=== PATIENT | female | born 1995 | race Two or more races ===

== ENCOUNTER 2017-10-27 14:51 | Inpatient (IN) | payer BC ==
[~2017-10-27] VITALS: Ht 157.5 cm; Wt 61.2 kg
--- NOTE | 2017-10-27 09:00 | NUR ---
RN NOTES PT IS RESTING IN BED COMFORTABLY. PT ON RA, RESPIRATIONS ARE EVEN AND UNLABORED. IV ON LAC INTACT AND RUNNING NS @ 75ML/HR. SAFETY MEASURES ARE IN PLACE, CALL LIGHT IS IN REACH. WILL ENDORSE TO MARKETING AND OUTREACH COORDINATOR RN FOR CONTINUITY OF CARE.
--- NOTE | 2017-10-27 15:10 | NUR ---
C/O RLQ ABD PAIN X THURSDAY. PT WAS DIAGNOSED OF APPENDECITIS AT [facility]. LAST NIGHT. 'I SIGNED AMA,THEY WON'T DO SURGERY CAUSE OF INSURANCE". NAD NOTED, VSS, RESP EVEN AND UNLABORED. PT PUT ON HOSPITAL GOWN AND MONITOR, WAITING FOR MD DODSON.
[2017-10-27 16:16] LABS: BASOPHILS % (AUTO) 0.3 % (0.0-2.0); EOSINOPHILS # (AUTO) 0.1 /CMM (0.0-0.7); EOSINOPHILS % (AUTO) 0.6 % (0.0-6.0); HEMATOCRIT 38 % (33-45); HEMOGLOBIN 13.2 g/dL (11.5-14.8); LYMPHOCYTES # (AUTO) 1.6 /CMM (0.8-4.8); LYMPHOCYTES % (AUTO) 19.4 % (20.0-44.0); MEAN CORPUSCULAR HEMOGLOBIN 29 PG (26.0-33.0); MEAN CORPUSCULAR HGB CONC 35 g/dl (31.0-36.0); MEAN CORPUSCULAR VOLUME 83 fL (82-100); MONOCYTES # (AUTO) 0.4 /CMM (0.1-1.30); NEUTROPHILS # (AUTO) 6.3 /CMM (1.8-8.9); NEUTROPHILS % (AUTO) 74.7 % (43.0-81.0); PLATELET COUNT (AUTO) 254 /CMM (150-450); RDW COEFFICIENT OF VARIATION 11.1 (11.5-15.0); WHITE BLOOD COUNT (AUTO) 8.4 K/uL (4.3-11.0)
[2017-10-27 16:26] LABS: CALCIUM, SERUM 8.5 mg/dL (8.5-10.1); CREATININE 0.7 mg/dL (0.6-1.3); POTASSIUM 3.6 mmol/L (3.5-5.1)
[2017-10-27 16:36] LABS: INR 1.01 (0.85-1.15)
[2017-10-27 16:37] LABS: ALBUMIN 3.8 g/dL (3.4-5.0); BILIRUBIN,DIRECT 0.1 mg/dL (0.0-0.2); BILIRUBIN,TOTAL 0.4 mg/dL (0.2-1.0); TOTAL PROTEIN, SERUM 7.1 g/dL (6.4-8.2)
--- NOTE | 2017-10-27 16:52 | NUR ---
CALLED DR CONTI OFFICE, WAS PAGED.
--- NOTE | 2017-10-27 17:26 | NUR ---
DAMI LEIJA TOOK REPORT
[2017-10-27] MEDS ORDERED: IV NS 0.9% 1,000 ML IV PRN (17:51)
[2017-10-27] MEDS ORDERED: ONDANSETRON HCL/PF 4 MG/2 ML VIAL IVP PRN (18:00)
[2017-10-27] MEDS ORDERED: MORPHINE SULFATE INJ 4 MG/ML DISP.SYRIN IV PRN (18:00)
--- NOTE | 2017-10-27 18:00 | NUR ---
RN NOTES PT WAS BROUGHT TO FLOOR BY ER. PT IS ALERT AND ORIENTED X4. IV INSERTED INTO RAC. SAFETY MEASURES ARE IN PLACE, CALL LIGHT IS IN REACH. WILL CONTINUE TO MONITOR.
[2017-10-27] MEDS: PANTOPRAZOLE 40 MG VIAL IV SCH (18:26)
[2017-10-27] MEDS: ENOXAPARIN SODIUM 40 MG/0.4 ML DISP.SYRIN SQ SCH (18:26)
[2017-10-27] MEDS: PIPERACILLIN /TAZOBACTAM 4.5 G in IV D5W 50 ML IV SCH (18:54)
--- NOTE | 2017-10-27 19:30 | NUR ---
MS RN OPENING NOTES: RECEIVED PT IN BED WITH 2 FAMILY MEMBERS/FRIENDS AT BEDSIDE. PT A/OX4. PT IN 04/13 RIGHT LOWER AB PAIN BUT DOES NOT WANT ANY PAIN MEDS. PT HAS IV ON LAC BEING INFUSED WITH ZOSYN AT THE MOMENT. CALL LIGHT WITHIN PT'S REACH. BED KEPT IN LOW, LOCKED POSITION, AND SIDE RAILS X 2UP. WILL HAVE TO GET CONSENT FOR LAPAROSCOPIC APPENDENCTOMY PER AM NURSE. SURGERY TO BE PERFORMED AT 2030 TONIGHT PER REPORT. WILL CONTINUE TO MONITOR PT.
[2017-10-27 19:39] VITALS: BP 104/63
[2017-10-27 20:00] VITALS: BP 104/63
--- NOTE | 2017-10-27 20:07 | NUR ---
MS RN NOTES: CONSENT OBTAINED FOR BLOOD TRANSFUSION, ANESTHESIA, AND PROCEDURE LAPAROSCOPIC APPENDECTOMY ; PLACED IN CHART; AWAITING FOR SURGEON SO MD CAN EXPLAIN PROCEDURE TO PATIENT.
--- NOTE | 2017-10-27 20:31 | NUR ---
MS RN NOTES: PT TAKEN DOWN TO OR BY OR NURSE VIA BED.
[2017-10-27] MEDS ORDERED: BUPIVACAINE 0.5 % PF 150 MG/30 ML VIAL ONE (20:43)
[2017-10-27] MEDS ORDERED: METOCLOPRAMIDE HCL 10 MG/2 ML VIAL ONE (20:47)
[2017-10-27] MEDS ORDERED: MIDAZOLAM HCL 2 MG/2ML VIAL ONE (20:47)
[2017-10-27] MEDS ORDERED: ROCURONIUM BROMIDE 50 MG/5 ML ONE (20:47)
[2017-10-27] MEDS ORDERED: SUCCINYLCHOLINE CHLORIDE 20 MG/ML VIAL ONE (20:47)
[2017-10-27] MEDS ORDERED: FENTANYL PF 250MCG/5ML AMPUL ONE (20:47)
[2017-10-27] MEDS ORDERED: HYDROMORPHONE 1 MG/1 ML DISP.SYRIN ONE (22:16)
--- NOTE | 2017-10-27 22:38 | NUR ---
MS RN NOTES: PT BACK ON FLOOR FROM OR.
[2017-10-27 22:40] VITALS: BP 109/64
--- NOTE | 2017-10-27 22:40 | NUR ---
MS RN NOTES: PT BACK ACCOMPANIED WITH 2 FAMILY MEMBERS. PT FINISHING UP 1L OF NS. NEW ORDERS PLACED IN CHART. PT TO BE ON LR AT 110ML/HR. PT DROWSY BUT IS A/OX4. PT TEARFUL. 3 LAP SITES IN ABDOMEN. PT PLACED IN SCD PUMPS. CALL LIGHT WITHIN PT'S REACH. BED KEPT IN LOW, LOCKED POSITION, AND SIDE RAILS X 2UP. WILL CONTINUE TO MONITOR V/S AND I AND O Q 4 HOURS ORDERED.
[2017-10-27] MEDS: IV LR 1000 ML 1,000 ML IV PRN (22:53)
[2017-10-28] MEDS: PIPERACILLIN /TAZOBACTAM 4.5 G in IV D5W 50 ML IV SCH ×4 (00:21→18:26)
[2017-10-28] MEDS ORDERED: ONDANSETRON HCL/PF 4 MG/2 ML VIAL IV PRN (01:00)
[2017-10-28] MEDS ORDERED: HYDROMORPHONE 1 MG/1 ML DISP.SYRIN IV PRN (01:00)
[2017-10-28] MEDS ORDERED: HYDROCODONE/APAP 5/325MG 1 EACH TABLET PO PRN (01:00)
[2017-10-28 02:40] VITALS: BP 93/48
[2017-10-28 05:15] VITALS: BP 102/62
--- NOTE | 2017-10-28 06:20 | NUR ---
MS RN NOTES: CALLED RESPIRATORY THERAPIST DEPARTMENT FOR INCENTIVE SPIROMETER.
[2017-10-28 06:40] VITALS: BP 105/60
--- NOTE | 2017-10-28 06:49 | NUR ---
MS RN NOTES: DR. WASSERMAN AWARE THAT [facility] RESPONSE TEAM WAS CALLED.
--- NOTE | 2017-10-28 07:10 | NUR ---
RN NOTES PATIENT ALERT AND ORIENTED X4, NO RESPIRATORY DISTRESS, ON O2 AT 4LPM VIA NC WITH NO SOB. PAIN IMPROVED AND COMFORTABLE AT THIS TIME. NEEDS ATTENDED, CALL LIGHT WITHIN REACH, WILL CONTINUE TO MONITOR.
[2017-10-28 07:24] LABS: BASOPHILS % (AUTO) 0.1 % (0.0-2.0); EOSINOPHILS % (AUTO) 0.2 % (0.0-6.0); HEMATOCRIT 37 % (33-45); HEMOGLOBIN 13.1 g/dL (11.5-14.8); LYMPHOCYTES # (AUTO) 1.5 /CMM (0.8-4.8); LYMPHOCYTES % (AUTO) 12.6 % (20.0-44.0); MEAN CORPUSCULAR HEMOGLOBIN 30 PG (26.0-33.0); MEAN CORPUSCULAR HGB CONC 35 g/dl (31.0-36.0); MEAN CORPUSCULAR VOLUME 85 fL (82-100); MONOCYTES # (AUTO) 0.5 /CMM (0.1-1.30); MONOCYTES % (AUTO) 4.2 % (2.0-12.0); NEUTROPHILS # (AUTO) 9.7 /CMM (1.8-8.9); NEUTROPHILS % (AUTO) 82.9 % (43.0-81.0); PLATELET COUNT (AUTO) 250 /CMM (150-450); RDW COEFFICIENT OF VARIATION 12.1 (11.5-15.0); WHITE BLOOD COUNT (AUTO) 11.7 K/uL (4.3-11.0)
--- NOTE | 2017-10-28 07:30 | NUR ---
MS RN CLOSING NOTES: ALL NEEDS WERE ATTENDED AND ANTICIPATED FOR. FRIEND AT BEDSIDE. PT ON 4LPM VIA NC AND IS TOLERATING WELL. INCENTIVE SPIROMETER GIVEN TO PT AND ENCOURAGED TO USE IT WHILE AWAKE. PT A/OX4. PT MANAGING PAIN AT THIS TIME. PT HAS IV ON LAC BEING INFUSED WITH LR 110ML/HR. CALL LIGHT WITHIN PT'S REACH. BED KEPT IN LOW, LOCKED POSITION, AND SIDE RAILS X 2UP. ENDORSED TO AM NURSE FOR EBONIE.
[2017-10-28 07:48] LABS: CALCIUM, SERUM 8.5 mg/dL (8.5-10.1); CREATININE 0.7 mg/dL (0.6-1.3); MAGNESIUM 1.7 mg/dL (1.8-2.4); PHOSPHORUS 4.6 mg/dL (2.5-4.9); POTASSIUM 3.7 mmol/L (3.5-5.1)
[2017-10-28 08:00] VITALS: BP 110/66
[2017-10-28] MEDS: PANTOPRAZOLE 40 MG VIAL IV SCH (08:21)
[2017-10-28] MEDS: Magnesium 1GM/D5W 100ML PREMIX 100 ML IV SCH ×2 (09:13→10:34)
--- NOTE | 2017-10-28 09:15 | NUR ---
RN NOTES PATIENT SEEN BY DR. LAUGHLIN, EXPLAINED PLAN OF CARE FOR TODAY, RECEIVED NEW ORDERS. ORDER NOTED AND ELÍAS REDD.
[2017-10-28] MEDS: ACETAMINOPHEN 325 MG TABLET PO PRN ×2 (15:08→20:53)
[2017-10-28 16:00] VITALS: BP 112/70
[2017-10-28] MEDS: IV LR 1000 ML 1,000 ML IV PRN (18:28)
--- NOTE | 2017-10-28 18:55 | NUR ---
RN NOTES PATIENT ALERT AND ORIENTED X4, ABLE TO AMBULATE IN THE HALLWAY. PATIENT STILL C/O MILD SHARP PAIN ON RIGHT SHOULDER AND RIGHT UPPER ABDOMEN, DR. LAUGHLIN AWARE, OFFERED PAIN MEDICATION BUT PATIENT REFUSES, PER PATIENT, PAIN IS BETTER AFTER WALKING IN THE HALLWAY. PATIENT VERBALIZED PASSING GAS, BUT NO BM AT THIS TIME. IN ROOM AIR WITH OF SPO2 96%. NO SHORTNESS OF BREATH OBSERVED, INCENTIVE SPIROMETER AT BEDSIDE AND ENCOURAGED TO USE EVERY HOUR OR TWO. ALL NEEDS ATTENDED AND MET, CALL LIGHT WITHIN REACH, WILL ENDORSE TO COPYRIGHT MANAGER FOR EBONIE.
--- NOTE | 2017-10-28 19:15 | NUR ---
RN NOTES RECEIVED PATIENT SITTING UP IN A CHAIR. ALERT AND ORIENTED X4, VERBALLY RESPONSIVE. NO SOB NOR ACUTE DISTRESS NOTED. INCENTIVE SPIROMETER AT BEDSIDE AND ENCOURAGED PT TO USE. PT VERBALIZED PASSING OF GAS BUT DENIES BM AT THIS TIME. BOWEL SOUNDS PRESENT UPON AUSCULTATION. IV SITE ON LAC INTACT AND PATENT, NO S/S OF INFILTRATION NOTED. IVF INFUSING WELL. ALL NEEDS ATTENDED AND MET, CALL LIGHT WITHIN REACH, SAFETY PRECAUTIONS OBSERVED. WILL CONTINUE TO MONITOR.
[2017-10-28 20:00] VITALS: BP 100/68
[2017-10-28] MEDS: ENOXAPARIN SODIUM 40 MG/0.4 ML DISP.SYRIN SQ SCH (20:52)
[2017-10-29] MEDS: PIPERACILLIN /TAZOBACTAM 4.5 G in IV D5W 50 ML IV SCH ×3 (00:18→13:55)
[2017-10-29] MEDS: IV LR 1000 ML 1,000 ML IV PRN (03:36)
--- NOTE | 2017-10-29 06:42 | NUR ---
RN NOTES PATIENT IN BED, RESTING COMFORTABLY, FRIEND AT BEDSIDE.AROUSES EASILY, ALERT AND ORIENTED X4, VERBALLY RESPONSIVE. NO SOB NOR ACUTE DISTRESS NOTED. PT VERBALIZED HAVING BM X1. IV SITE ON LAC INTACT AND PATENT, NO S/S OF INFILTRATION NOTED. IVF INFUSING WELL. ALL NEEDS ATTENDED AND MET, ALL DUE MEDS GIVEN. LAP SITES WITH NO BLEEDING NOR S/S OF INFECTION NOTED. CALL LIGHT WITHIN REACH, SAFETY PRECAUTIONS OBSERVED. WILL ENDORSE TO NEXT SHIFT FOR EBONIE. .
[2017-10-29 07:10] LABS: BASOPHILS % (AUTO) 0.4 % (0.0-2.0); EOSINOPHILS # (AUTO) 0.1 /CMM (0.0-0.7); EOSINOPHILS % (AUTO) 1.9 % (0.0-6.0); HEMATOCRIT 33 % (33-45); HEMOGLOBIN 11.5 g/dL (11.5-14.8); LYMPHOCYTES # (AUTO) 1.7 /CMM (0.8-4.8); LYMPHOCYTES % (AUTO) 30.6 % (20.0-44.0); MEAN CORPUSCULAR HEMOGLOBIN 29 PG (26.0-33.0); MEAN CORPUSCULAR HGB CONC 35 g/dl (31.0-36.0); MEAN CORPUSCULAR VOLUME 85 fL (82-100); MONOCYTES # (AUTO) 0.4 /CMM (0.1-1.30); NEUTROPHILS # (AUTO) 3.2 /CMM (1.8-8.9); NEUTROPHILS % (AUTO) 59.1 % (43.0-81.0); PLATELET COUNT (AUTO) 221 /CMM (150-450); RDW COEFFICIENT OF VARIATION 12.3 (11.5-15.0); RED BLOOD CELL COUNT(AUTO) 3.91 MIL/uL (4.0-5.2); WHITE BLOOD COUNT (AUTO) 5.4 K/uL (4.3-11.0)
--- NOTE | 2017-10-29 07:20 | NUR ---
RN OPENING NOTES RECEIVED PT. IN BED A&OX4. BREATHING UNLABORED, AND EVENLY ON ROOM AIR. NO S/S OF ACUTE DISTRESS, AND PT. DENIES PAIN. IV ON LEFT ANTECUBITAL SITE INTACT AND PATENT. PER NURSE PT. CAN ADVANCE TO SOFT DIET DUE TO PT. INCENTIVE SPIROMETER AT BEDSIDE. TOLERATING CLEAR LIQUIDS WELL. BED IS IN LOWEST, AND LOCKED POSITION, 2 SIDE RAILS UP, AND INSTRUCTED PT. TO USE CALL LIGHT FOR ASSISTANCE. ALL NEEDS MET. WILL CONTINUE TO ASSESS AND MONITOR.
[2017-10-29 07:52] LABS: CALCIUM, SERUM 8.1 mg/dL (8.5-10.1); CREATININE 0.6 mg/dL (0.6-1.3); MAGNESIUM 1.7 mg/dL (1.8-2.4); POTASSIUM 3.9 mmol/L (3.5-5.1)
[2017-10-29 08:00] VITALS: BP 120/79
[2017-10-29] MEDS: PANTOPRAZOLE 40 MG VIAL IV SCH (08:37)
[2017-10-29] MEDS: Magnesium 1GM/D5W 100ML PREMIX 100 ML IV SCH ×2 (11:22→12:44)
--- NOTE | 2017-10-29 16:41 | NUR ---
FILTER CLOTH MAKER PT. LEFT IN MEDICALLY STABLE CONDITION WITH HER FRIEND ALONG SIDE. PT. WAS PROVIDED DISCHARGE INSTRUCTIONS, WITH EDUCATION AND PT. VERBALIZED UNDERSTANDING. BELONGINGS LIST CHECKED, AND SIGNED. ID BAND, AND IV REMOVED WITHOUT COMPLICATIONS. PT. WAS GIVEN SURGEON'S CONTACT INFORMATION AND A FOLLOW UP APPOINTMENT WAS MADE FOR October, AT 2PM. PT. VERBALIZED UNDERSTANDING OF AFTER CARE INSTRUCTIONS, AND ALL QUESTIONS WERE ANSWERED.
== END 2017-10-29 16:35 | disposition home or self-care (01) | DRG 343 ==
LOC: ER 14:52 → MED 17:21
PROVIDERS: ADMIT Family Medicine; ATTEND Family Medicine
PROC: 0DTJ4ZZ Resection of Appendix, Percutaneous Endoscopic Approach (ICD-10-PCS; principal; 2017-10-27 20:30)
DX: K35.80 Unspecified acute appendicitis (principal); E83.42 Hypomagnesemia; D72.829 Elevated white blood cell count, unspecified
CPT/HCPCS: 36415; 80048-TC; 80076-TC; 82962-TC; 83690-TC; 83735-TC; 84100-TC; 84703-TC; 85025-TC; 85730-TC; 86850-TC; 87081-TC; A4606; C9113; J0330; J1170; J1650; J2250; J2270; J2405; J2543; J2704; J2710; J2765; J3010; J3475; J3490; J7030; J7060; J7120; Z7610